=== PATIENT | female | born 1955 | race Caucasian/White ===

== ENCOUNTER 2017-06-15 10:49 | Emergency (ER) | payer BC ==
[2017-06-15 11:24] VITALS: BP 165/91; PULSE 94; RESP 16; TEMP 96.7; O2SAT 94
[2017-06-15] MEDS ORDERED: MAGIC MOUTHWASH 120 ML KIT MT PRN (11:29)
[2017-06-15] MEDS ORDERED: ALUMINUM/MAGNESIUM 30 ML SUS ONE (11:37)
[2017-06-15] MEDS ORDERED: DIPHENHYDRAMINE 25 MG/10 ML ELI ONE (11:37)
[2017-06-15] MEDS ORDERED: LIDOCAINE HCL 2% (VISCOUS) 20 ML SOL ONE (11:37)
[2017-06-15 11:51] LABS: HEMATOCRIT 36 % (35-47); MEAN CORPUSCULAR HGB CONC 33.4 gm/dl (32.0-36.0); MEAN CORPUSCULAR VOLUME 83 fL (81-99)
[2017-06-15 12:13] LABS: BASOPHILS % (MANUAL) 0 % (0-3); EOSINOPHILS % (MANUAL) 0 % (0-9); LYMPHOCYTES % (MANUAL) 75 % (10-50); NORMAL RBCS PRESENT
== END 2017-06-15 12:17 | disposition home or self-care (01) ==
LOC: ED 10:49
DX: J02.9 Acute pharyngitis, unspecified (principal); J04.0 Acute laryngitis; J01.00 Acute maxillary sinusitis, unspecified; C91.10 Chronic lymphocytic leukemia of B-cell type not having achieved remission
CPT/HCPCS: 36415; 85007; 85027; 87430; 99282

== ENCOUNTER 2017-12-13 22:11 | Emergency (ER) | payer BC ==
[2017-12-13] MEDS ORDERED: APAP/HYDROCODONE 325/5 TAB PO ONE (22:53)
[2017-12-13] MEDS ORDERED: CYCLOBENZAPRINE 10 MG TAB PO ONE (22:53)
[2017-12-13] MEDS ORDERED: CYCLOBENZAPRINE 10 MG TAB ONE (22:54)
[2017-12-13] MEDS ORDERED: APAP/HYDROCODONE 325/5 TAB ONE (22:55)
[2017-12-14 00:26] VITALS: BP 154/90; PULSE 65; RESP 16; TEMP 98; O2SAT 98
== END 2017-12-13 23:17 | disposition home or self-care (01) ==
LOC: ED 22:11
DX: S39.012A Strain of muscle, fascia and tendon of lower back, initial encounter (principal)
CPT/HCPCS: 99282; 99283; A9270-GY

== ENCOUNTER 2017-12-14 23:26 | Emergency (ER) | payer BC ==
[2017-12-14 23:56] VITALS: BP 137/82; PULSE 60; RESP 16; TEMP 97.7; O2SAT 99
[2017-12-15] MEDS ORDERED: APAP/HYDROCODONE 325/5 TAB PO ONE (00:12)
[2017-12-15] MEDS ORDERED: APAP/HYDROCODONE 325/5 TAB ONE (00:16)
== END 2017-12-15 00:20 | disposition home or self-care (01) ==
LOC: ED 23:26
DX: S39.012D Strain of muscle, fascia and tendon of lower back, subsequent encounter (principal)
CPT/HCPCS: 99282; A9270-GY